=== PATIENT | female | born 1995 ===

== ENCOUNTER 2020-10-20 07:36 | Emergency (ER) | payer SELFPAY ==
[2020-10-20] MEDS ORDERED: HYDROmorphone 1 MG/1 ML INJ IV ONE ×2 (07:42→07:57)
[2020-10-20] MEDS ORDERED: SODIUM CHLORIDE 0.9% 1000 ML 1,000 ML IV ONE ×2 (07:42→08:31)
[2020-10-20] MEDS ORDERED: ONDANSETRON 4 MG/2 ML INJ IV ONE (07:42)
--- NOTE | 2020-10-20 07:45 | Event Note ---
ED Screening Note Date of service: 10/20/20 Time: 07:43 ED Screening Note: 25-year-old female presents to the emergency room for severe abdominal pain times several days and has gotten worse. Patient states that she was seen at [facility] and they kept telling her she had different diagnosis such as urinary tract infection constipation fibroids and back to urinary tract infection. Patient states that she is in so much pain that she is not able to walk. Nursing staff had to assist patient out of a car. Patient is in obvious distress. This initial assessment/diagnostic orders/clinical plan/treatment(s) is/are subject to change based on patients health status, clinical progression and re- assessment by fellow clinical providers in the ED. Further treatment and workup at subsequent clinical providers discretion. Patient/guardian urged not to elope from the ED as their condition may be serious if not clinically assessed and managed. Initial orders include:
--- NOTE | 2020-10-20 08:00 | Emergency Department Report ---
ED Abdominal Pain HPI - General Chief Complaint: Abdominal Pain Stated Complaint: BACK/STOMACH PAIN Time Seen by Provider: 10/20/20 07:41 Source: patient, old records reviewed (No previous medical record for review) Mode of arrival: Wheelchair Limitations: No Limitations - History of Present Illness Initial Comments: 25-year-old female with a past medical history of asthma, seizures, no previous abdominal surgeries presents to the hospital complaining of severe left-sided abdominal pain rating to the back since around 3 AM. Patient complains of pain with urination and pressure radiating down to her vagina. Patient waited for several hours at [facility] but left prior to being seen due to extended wait. Patient was seen at [facility] last week and diagnosed a UTI of fibroids diagnosed after ua and ultrasound. She state test was neg. She denies diagnosis of kidney stones. Since 3 AM she has had 10/10 constant pain with associated nausea vomiting anything she also vomited up the prescribed antibiotics. Positive pain with urination. Patient has not had a bowel movement x1 week. Patient admits to smoking marijuana but denies heroin or narcotic abuse. - Related Data Previous Rx's Medication Instructions Recorded Last Taken Type DOXYCYCLINE Hyclate [Vibramycin 100 mg PO BID #13 tab 10/20/20 Unknown Rx CAP] HYDROcodone/APAP 5-325 [[place] 1 each PO Q6HR PRN #14 tablet 10/20/20 Unknown Rx 5/325] Ibuprofen [Motrin] 600 mg PO Q8H PRN #20 tablet 10/20/20 Unknown Rx Nitrofurantoin [place]/M-Cryst 100 mg PO Q12HR #14 capsule 10/20/20 Unknown Rx [Macrobid CAP] Ondansetron [Zofran Odt] 4 mg PO Q8HR PRN #20 tab.rapdis 10/20/20 Unknown Rx Allergies Allergy/AdvReac Type Severity Reaction Status Date / Time No Known Allergies Allergy Unverified 10/20/20 07:38 ED Review of Systems ROS: Stated complaint: BACK/STOMACH PAIN Other details as noted in HPI Comment: All other systems reviewed and negative ED Past Medical Hx - Past Medical History Previous Medical History?: Yes Hx Seizures: Yes Hx Asthma: Yes - Surgical History Past Surgical History?: No - Social History Smoking Status: Never Smoker Substance Use Type: None - Medications Home Medications: Home Medications Medication Instructions Recorded Confirmed Last Taken Type DOXYCYCLINE Hyclate [Vibramycin 100 mg PO BID #13 tab 10/20/20 Unknown Rx CAP] HYDROcodone/APAP 5-325 [[place] 1 each PO Q6HR PRN #14 tablet 10/20/20 Unknown Rx 5/325] Ibuprofen [Motrin] 600 mg PO Q8H PRN #20 tablet 10/20/20 Unknown Rx Nitrofurantoin [place]/M-Cryst 100 mg PO Q12HR #14 capsule 10/20/20 Unknown Rx [Macrobid CAP] Ondansetron [Zofran Odt] 4 mg PO Q8HR PRN #20 tab.rapdis 10/20/20 Unknown Rx ED Physical Exam - General Limitations: No Limitations - Other Other exam information: General: Positive severe distress, tearful, crying in pain Head: Atraumatic Eyes: normal appearance ENT: Moist mucous membranes Neck: Normal appearance, no midline tenderness Chest: Clear to auscultation bilaterally CV: Tachycardic, regular rhythm, tearful Abdomen: Soft, normal bowel sounds, nontender, tenderness to epigastric and entire left abdomen Back: Normal inspection Extremity: Normal inspection, full range of motion Neuro: Alert O x 3, no facial asymmetry, speech clear, no gross motor sensory deficit Skin: no rash ED Course Vital Signs 10/20/20 10/20/20 10/20/20 07:38 08:09 08:39 Temperature 97.9 F Pulse Rate 159 H Respiratory 24 18 18 Rate Blood Pressure 160/130 Blood Pressure [Right] O2 Sat by Pulse 98 Oximetry 10/20/20 10/20/20 10/20/20 08:47 08:49 09:39 Temperature Pulse Rate 103 H Respiratory 18 18 18 Rate Blood Pressure Blood Pressure 136/89 [Right] O2 Sat by Pulse 100 100 Oximetry 10/20/20 10/20/20 10:09 12:05 Temperature Pulse Rate 69 Respiratory 18 18 Rate Blood Pressure Blood Pressure 105/61 [Right] O2 Sat by Pulse 99 Oximetry ED Medical Decision Making - Lab Data Result diagrams: 10/20/20 07:57 10/20/20 07:57 Lab Results 10/20/20 10/20/20 10/20/20 Range/Units 07:57 07:57 07:57 WBC 13.9 H (4.5-11.0) K/mm3 RBC 4.34 (3.65-5.03) M/mm3 Hgb 13.3 (10.1-14.3) gm/dl Hct 39.9 (30.3-42.9) % MCV 92 (79-97) fl MCH 31 (28-32) pg MCHC 33 (30-34) % RDW 13.0 L (13.2-15.2) % Plt Count 294 (140-440) K/mm3 Lymph % (Auto) 11.6 L (13.4-35.0) % [place] % (Auto) 5.6 (0.0-7.3) % Eos % (Auto) 0.1 (0.0-4.3) % Baso % (Auto) 0.1 (0.0-1.8) % Lymph # (Auto) 1.6 (1.2-5.4) K/mm3 [place] # (Auto) 0.8 (0.0-0.8) K/mm3 Eos # (Auto) 0.0 (0.0-0.4) K/mm3 Baso # (Auto) 0.0 (0.0-0.1) K/mm3 Seg Neutrophils % 82.6 H (40.0-70.0) % Seg Neutrophils # 11.5 H (1.8-7.7) K/mm3 Sodium 141 (137-145) mmol/L Potassium 4.1 (3.6-5.0) mmol/L Chloride 106.8 (98-107) mmol/L Carbon Dioxide 23 (22-30) mmol/L Anion Gap 15 mmol/L BUN 8 (7-17) mg/dL Creatinine 0.8 (0.6-1.2) mg/dL Estimated GFR > 60 ml/min BUN/Creatinine Ratio 10 % Glucose 96 (65-100) mg/dL Lactic Acid (0.7-2.0) mmol/L Calcium 9.5 (8.4-10.2) mg/dL Total Bilirubin 0.40 (0.1-1.2) mg/dL AST 19 (5-40) units/L ALT 10 (7-56) units/L Alkaline Phosphatase 83 (35-129) units/L Total Protein 7.7 (6.3-8.2) g/dL Albumin 4.5 (3.9-5) g/dL Albumin/Globulin Ratio 1.4 % Lipase (13-60) units/L HCG, Quant < 2 (0-4) mIU/mL Urine Color (Yellow) Urine Turbidity (Clear) Urine pH (5.0-7.0) Ur Specific [place]ra (1.003-1.030) Urine Protein (Negative) mg/dL Urine Glucose (UA) (Negative) mg/dL Urine Ketones (Negative) mg/dL Urine Blood (Negative) Urine Nitrite (Negative) Urine Bilirubin (Negative) Urine Urobilinogen (<2.0) mg/dL Ur Leukocyte Esterase (Negative) Urine WBC (Auto) (0.0-6.0) /HPF Urine RBC (Auto) (0.0-6.0) /HPF U Epithel Cells (Auto) (0-13.0) /HPF Urine WBC Clumps /HPF Urine Mucus /HPF Urine Opiates Screen Urine Methadone Screen Ur Barbiturates Screen Ur Phencyclidine Scrn Ur Amphetamines Screen U Benzodiazepines Scrn Urine Cocaine Screen U Marijuana (THC) Screen Drugs of Abuse Note 10/20/20 10/20/20 10/20/20 Range/Units 07:57 07:57 08:32 WBC (4.5-11.0) K/mm3 RBC (3.65-5.03) M/mm3 Hgb (10.1-14.3) gm/dl Hct (30.3-42.9) % MCV (79-97) fl MCH (28-32) pg MCHC (30-34) % RDW (13.2-15.2) % Plt Count (140-440) K/mm3 Lymph % (Auto) (13.4-35.0) % Hooker % (Auto) (0.0-7.3) % Eos % (Auto) (0.0-4.3) % Baso % (Auto) (0.0-1.8) % Lymph # (Auto) (1.2-5.4) K/mm3 [place] # (Auto) (0.0-0.8) K/mm3 Eos # (Auto) (0.0-0.4) K/mm3 Baso # (Auto) (0.0-0.1) K/mm3 Seg Neutrophils % (40.0-70.0) % Seg Neutrophils # (1.8-7.7) K/mm3 Sodium (137-145) mmol/L Potassium (3.6-5.0) mmol/L Chloride (98-107) mmol/L Carbon Dioxide (22-30) mmol/L Anion Gap mmol/L BUN (7-17) mg/dL Creatinine (0.6-1.2) mg/dL Estimated GFR ml/min BUN/Creatinine Ratio % Glucose (65-100) mg/dL Lactic Acid 2.60 H* (0.7-2.0) mmol/L Calcium (8.4-10.2) mg/dL Total Bilirubin (0.1-1.2) mg/dL AST (5-40) units/L ALT (7-56) units/L Alkaline Phosphatase (35-129) units/L Total Protein (6.3-8.2) g/dL Albumin (3.9-5) g/dL Albumin/Globulin Ratio % Lipase 33 (13-60) units/L HCG, Quant (0-4) mIU/mL Urine Color Yellow (Yellow) Urine Turbidity Hazy (Clear) Urine pH 7.0 (5.0-7.0) Ur Specific Citra 1.007 (1.003-1.030) Urine Protein >500 (Negative) mg/dL Urine Glucose (UA) Neg (Negative) mg/dL Urine Ketones Neg (Negative) mg/dL Urine Blood Neg (Negative) Urine Nitrite Neg (Negative) Urine Bilirubin Neg (Negative) Urine Urobilinogen < 2.0 (<2.0) mg/dL Ur Leukocyte Esterase Sm (Negative) Urine WBC (Auto) 37.0 H (0.0-6.0) /HPF Urine RBC (Auto) 2.0 (0.0-6.0) /HPF U Epithel Cells (Auto) 1.0 (0-13.0) /HPF Urine WBC Clumps 2+ /HPF Urine Mucus Few /HPF Urine Opiates Screen Urine Methadone Screen Ur Barbiturates Screen Ur Phencyclidine Scrn Ur Amphetamines Screen U Benzodiazepines Scrn Urine Cocaine Screen U Marijuana (THC) Screen Drugs of Abuse Note 10/20/20 10/20/20 Range/Units 08:32 10:24 WBC (4.5-11.0) K/mm3 RBC (3.65-5.03) M/mm3 Hgb (10.1-14.3) gm/dl Hct (30.3-42.9) % MCV (79-97) fl MCH (28-32) pg MCHC (30-34) % RDW (13.2-15.2) % Plt Count (140-440) K/mm3 Lymph % (Auto) (13.4-35.0) % Hooker % (Auto) (0.0-7.3) % Eos % (Auto) (0.0-4.3) % Baso % (Auto) (0.0-1.8) % Lymph # (Auto) (1.2-5.4) K/mm3 [place] # (Auto) (0.0-0.8) K/mm3 Eos # (Auto) (0.0-0.4) K/mm3 Baso # (Auto) (0.0-0.1) K/mm3 Seg Neutrophils % (40.0-70.0) % Seg Neutrophils # (1.8-7.7) K/mm3 Sodium (137-145) mmol/L Potassium (3.6-5.0) mmol/L Chloride (98-107) mmol/L Carbon Dioxide (22-30) mmol/L Anion Gap mmol/L BUN (7-17) mg/dL Creatinine (0.6-1.2) mg/dL Estimated GFR ml/min BUN/Creatinine Ratio % Glucose (65-100) mg/dL Lactic Acid 0.80 (0.7-2.0) mmol/L Calcium (8.4-10.2) mg/dL Total Bilirubin (0.1-1.2) mg/dL AST (5-40) units/L ALT (7-56) units/L Alkaline Phosphatase (35-129) units/L Total Protein (6.3-8.2) g/dL Albumin (3.9-5) g/dL Albumin/Globulin Ratio % Lipase (13-60) units/L HCG, Quant (0-4) mIU/mL Urine Color (Yellow) Urine Turbidity (Clear) Urine pH (5.0-7.0) Ur Specific Citra (1.003-1.030) Urine Protein (Negative) mg/dL Urine Glucose (UA) (Negative) mg/dL Urine Ketones (Negative) mg/dL Urine Blood (Negative) Urine Nitrite (Negative) Urine Bilirubin (Negative) Urine Urobilinogen (<2.0) mg/dL Ur Leukocyte Esterase (Negative) Urine WBC (Auto) (0.0-6.0) /HPF Urine RBC (Auto) (0.0-6.0) /HPF U Epithel Cells (Auto) (0-13.0) /HPF Urine WBC Clumps /HPF Urine Mucus /HPF Urine Opiates Screen Negative Urine Methadone Screen Negative Ur Barbiturates Screen Negative Ur Phencyclidine Scrn Negative Ur Amphetamines Screen Negative U Benzodiazepines Scrn Negative Urine Cocaine Screen Negative U Marijuana (THC) Screen Positive Drugs of Abuse Note Disclamer - Radiology Data Radiology results: report reviewed CT abdomen pelvis w con INDICATION: Severe abdominal pain/constipation. TECHNIQUE: All CT scans at this location are performed using CT dose reduction for ALARA by means of automated exposure control. COMPARISON: None available. FINDINGS: Lung bases are clear of acute disease. Small stone in the neck of the gallbladder. Liver, spleen, pancreas, kidneys and adrenals are negative. Abdominal aorta is normal in size. No adenopathy. Pelvis Normal appendix. Urinary bladder and distal ureters are negative. Trace free fluid in the inferior pelvis is probably physiologic. There appears to be a 1.7 cm right ovarian cyst. History is noted, but the colon is not distended, and findings do not indicate significant constipation. No skeletal lesions. IMPRESSION: 1. Cholelithiasis. Gallstone is in the neck of the gallbladder, and though CT does not show obvious cholecystitis, ultrasound may be helpful. 2. Probable small right ovarian cyst, with trace free fluid in the pelvis, probably physiologic. - Medical Decision Making Patient hysterical during most of her ED evaluation and continued to complain of pain despite 1 mg of Dilaudid and Zofran. Patient did calm down with addition of Benadryl, Toradol, and subsequently Ativan 0.5. She did receive 2 L of normal saline during ED stay. Urine suggest infection. CT shows cholelithiasis without cholecystitis, small right ovarian cyst, and likely physiologic pelvic fluid. Patient does not endorse right upper quadrant pain and states pain is all left-sided and suprapubic in nature radiating to her vagina. Patient also has normal LFTs. Patient does have CMT and vaginal tenderness with pelvic exam and therefore also treated for PID until gonorrhea chlamydia test result. She received IV Rocephin for UTI. Patient without vomiting during ED stay. Mild elevated lactic acid improved with IV hydration. Patient reports that she was diagnosed with fibroids at [facility] which had not been identified on CT exam here. Despite patient's complaint of constipation there is no significant retained stool on CT examination. Patient be discharged home on medications for pain, nausea, and antibiotics for PID and UTI. Initial abnormal vital signs likely secondary to distress secondary to pain. Prior to discharge vital signs have normalized and patient is much more comfortable Critical Care Time: No Critical care attestation.: If time is entered above; I have spent that time in minutes in the direct care of this critically ill patient, excluding procedure time. ED Disposition Clinical Impression: UTI (urinary tract infection), Pelvic pain, Cholelithiasis Disposition: TO HOME OR SELFCARE Is pt being admited?: No Condition: Stable Instructions: Cholelithiasis, Pelvic Pain, Female, Urinary Tract Infection, Adult, Abdominal Pain (ED) Additional Instructions: Take the medication as prescribed. Follow-up with your doctor or doctor/clinic provided. Return if symptoms worsen as indicated by your discharge in structions. Your gonorrhea and Chlamydia tests have been sent and take 2-3 days to result. You may obtain your results by going to medical records with your photo ID or your follow-up physician may request the results be sent to his or her office with your written permission. You did received treatment for gonorrhea and chlamydia since results are delayed. Prescriptions: Nitrofurantoin [place]er/M-Cryst [Macrobid CAP] 100 mg PO Q12HR #14 capsule Ibuprofen [Motrin] 600 mg PO Q8H PRN #20 tablet PRN Reason: Pain HYDROcodone/APAP 5-325 [[place] 5/325] 1 each PO Q6HR PRN #14 tablet PRN Reason: Pain DOXYCYCLINE Hyclate [Vibramycin CAP] 100 mg PO BID #13 tab Ondansetron [Zofran Odt] 4 mg PO Q8HR PRN #20 tab.rapdis PRN Reason: Nausea And Vomiting Referrals: PRIMARY CARE, [Primary Care Provider] - 3-5 Days [facility] [Provider Group] - 3-5 Days [facility] [Provider Group] - 3-5 Days JEAN PAUL PALACIOS MD [Staff Physician] - 3-5 Days Forms: [facility]I Treatment and Prevention Time of Disposition: 12:11
[2020-10-20 08:21] LABS: Basophils % (Auto) 0.1 % (0.0-1.8); Eosinophils % (Auto) 0.1 % (0.0-4.3); Hematocrit 39.9 % (30.3-42.9); Hemoglobin 13.3 gm/dl (10.1-14.3); Lymphocytes # (Auto) 1.6 K/mm3 (1.2-5.4); Lymphocytes % (Auto) 11.6 % (13.4-35.0); Mean Corpuscular HGB Conc 33 % (30-34); Mean Corpuscular Volume 92 fl (79-97); Monocytes # (Auto) 0.8 K/mm3 (0.0-0.8); Monocytes % (Auto) 5.6 % (0.0-7.3); Platelet Count 294 K/mm3 (140-440); Red Blood Count 4.34 M/mm3 (3.65-5.03)
[2020-10-20 08:48] LABS: Alanine Aminotransferase 10 units/L (7-56); Albumin 4.5 g/dL (3.9-5); BUN/Creatinine Ratio 10; Blood Urea Nitrogen 8 mg/dL (7-17); Calcium 9.5 mg/dL (8.4-10.2); Hemolysis Index 19
[2020-10-20 09:04] LABS: Bilirubin,Urine NEG (Negative); Blood,Urine NEG (Negative); Color,Urine Yellow (Yellow); Mucus,Urine FEW /HPF; Urobilinogen,Urine < 2.0 mg/dL (<2.0)
[2020-10-20 09:06] LABS: Protein,Urine >500 mg/dL (Negative)
[2020-10-20 09:08] LABS: Amphetamine Screen,Urine Negative; Benzodiazepines Screen,Urine Negative; Cocaine Screen,Urine Negative; Methadone Screen,Urine Negative; Opiate Screen,Urine Negative
[2020-10-20] MEDS ORDERED: LORazepam 2 MG/ML VIAL IV ONE (09:11)
[2020-10-20] MEDS ORDERED: diphenhydrAMINE 50 MG/ML VIAL IV ONE (09:11)
[2020-10-20] MEDS ORDERED: KETOROLAC 30 MG/1 ML INJ IV ONE (09:12)
[2020-10-20] MEDS ORDERED: cefTRIAXone/NS 1 GM/50 ML 1 GM/50 ML BAG IV ONE (09:12)
[2020-10-20 09:22] LABS: Cannabinoid Screen,Urine Positive
--- NOTE | 2020-10-20 09:59 | Cat Scan Report ---
CT abdomen pelvis w con INDICATION: Severe abdominal pain/constipation. TECHNIQUE: All CT scans at this location are performed using CT dose reduction for ALARA by means of automated e xposure control. COMPARISON: None available. FINDINGS: Lung bases are clear of acute disease. Small stone in the neck of the gallbladder. Liver, spleen, ramos creas, kidneys and adrenals are negative. Abdominal aorta is normal in size. No adenopathy. Pelvis Normal appendix. Urinary bladder and distal ureters are negative. Trace free fluid in the inferior pe lvis is probably physiologic. There appears to be a 1.7 cm right ovarian cyst. History is noted, but the colon is not distended, and findings do not indicate significant constipati on. No skeletal lesions. IMPRESSION: 1. Cholelithiasis. Gallstone is in the neck of the gallbladder, and though CT does not show obvious c holecystitis, ultrasound may be helpful. 2. Probable small right ovarian cyst, with trace free fluid in the pelvis, probably physiologic. Signer Name: Clinton Fry MD Signed: 10/20/2020 9:54 AM Workstation Name: [id number]
[2020-10-20] MEDS ORDERED: DOXYCYCLINE 100 MG CAP PO ONE (11:56)
[2020-10-20 16:01] VITALS: BP 105/69
== END 2020-10-20 12:30 | disposition home or self-care (01) ==
LOC: ED 07:36
DX: N39.0 Urinary tract infection, site not specified (principal); K80.20 Calculus of gallbladder without cholecystitis without obstruction; R10.2 Pelvic and perineal pain; J45.909 Unspecified asthma, uncomplicated; Z79.899 Other long term (current) drug therapy; Z86.69 Personal history of other diseases of the nervous system and sense organs
CPT/HCPCS: 36415; 74177; 80053; 80307; 81001; 82140; 83690; 84702; 85025; 87086; 87210; 87591; 96361; 96365; 96366; 96375; 99284; J0696; J1170; J1200; J1885; J2060; J2405; J7030; Q9967

== ENCOUNTER 2020-11-07 11:41 | Emergency (ER) | payer SELFPAY ==
[2020-11-07] MEDS ORDERED: KETOROLAC 60 MG/2 ML INJ ONE (11:46)
[2020-11-07] MEDS ORDERED: KETOROLAC 30 MG/1 ML INJ IM ONE (11:48)
[2020-11-07] MEDS ORDERED: ONDANSETRON 4 MG ODT TAB PO ONE ×2 (11:48→12:04)
[2020-11-07] MEDS ORDERED: ONDANSETRON 4 MG/2 ML INJ IM ONE (11:50)
--- NOTE | 2020-11-07 11:51 | Event Note ---
ED Screening Note Date of service: 11/07/20 Time: 11:49 ED Screening Note: 25-year-old female known to me from October 20, 2020 comes in for back pain and stomach pain. Patient was discharged from [place] last night for the same complaint. Review of patient's charts noticed that she tested positive for gonorrhea and chlamydia. Patient states that she was treated with a shot of medicine. It was also noted the patient had positive urine UDS marijuana. Patient states she smokes. This initial assessment/diagnostic orders/clinical plan/treatment(s) is/are subject to change based on patients health status, clinical progression and re- assessment by fellow clinical providers in the ED. Further treatment and workup at subsequent clinical providers discretion. Patient/guardian urged not to elope from the ED as their condition may be serious if not clinically assessed and managed. Initial orders include:
[2020-11-07] MEDS ORDERED: fentaNYL 100 MCG/2 ML INJ IV ONE (12:00)
[2020-11-07 12:19] VITALS: BP 119/82
[2020-11-07] MEDS ORDERED: fentaNYL 250 MCG/5 ML INJ IV ONE (12:23)
[2020-11-07] MEDS ORDERED: ONDANSETRON 4 MG/2 ML INJ IV ONE (12:23)
[2020-11-07] MEDS ORDERED: LORazepam 2 MG/ML VIAL ONE (12:25)
[2020-11-07] MEDS ORDERED: fentaNYL 100 MCG/2 ML INJ ONE (12:25)
[2020-11-07] MEDS ORDERED: LORazepam 2 MG/ML VIAL IV ONE (12:31)
--- NOTE | 2020-11-07 12:32 | Emergency Department Report ---
ED Abdominal Pain HPI - General Chief Complaint: Abdominal Pain Stated Complaint: BACK/STOMACH PAIN Time Seen by Provider: 11/07/20 12:17 Source: patient Mode of arrival: Ambulatory Limitations: No Limitations - History of Present Illness Initial Comments: Patient is 25 years old female with no significant past medical history. Patient presented to the ER complaining of severe abdominal pain and back spasms started all of a sudden this morning. Patient stated that she went to [facility] and diagnosed with chlamydia and discharged home but her pain is not relieved. Patient stated that she never had any pain like this before. Patient denied any fever or chills. Patient stated that she is nauseated but no vomiting. MD Complaint: abdominal pain -: This morning Location: diffuse Migration to: no migration Severity scale (0 -10): 10 - Related Data Previous Rx's Medication Instructions Recorded Last Taken Type DOXYCYCLINE Hyclate [Vibramycin 100 mg PO BID #13 tab 10/20/20 Unknown Rx CAP] HYDROcodone/APAP 5-325 [[place] 1 each PO Q6HR PRN #14 tablet 10/20/20 Unknown Rx 5/325] Ibuprofen [Motrin] 600 mg PO Q8H PRN #20 tablet 10/20/20 Unknown Rx Nitrofurantoin [place]/M-Cryst 100 mg PO Q12HR #14 capsule 10/20/20 Unknown Rx [Macrobid CAP] Ondansetron [Zofran Odt] 4 mg PO Q8HR PRN #20 tab.rapdis 10/20/20 Unknown Rx Allergies Allergy/AdvReac Type Severity Reaction Status Date / Time lithium Allergy Angioedema Verified 11/07/20 12:35 risperidone [From Risperdal] Allergy Angioedema Verified 11/07/20 12:35 fentanyl AdvReac Itching Verified 11/07/20 12:33 ED Review of Systems ROS: Stated complaint: BACK/STOMACH PAIN Other details as noted in HPI Comment: All other systems reviewed and negative Constitutional: denies: chills, fever Respiratory: denies: cough, shortness of breath, SOB with exertion Cardiovascular: denies: chest pain, palpitations Gastrointestinal: abdominal pain, nausea. denies: vomiting, diarrhea, constipation, hematemesis Musculoskeletal: back pain Neurological: denies: headache, weakness, numbness, paresthesias ED Past Medical Hx - Past Medical History Previous Medical History?: Yes Hx Seizures: Yes Hx Asthma: Yes - Surgical History Past Surgical History?: No - Social History Smoking Status: Never Smoker Substance Use Type: Marijuana - Medications Home Medications: Home Medications Medication Instructions Recorded Confirmed Last Taken Type DOXYCYCLINE Hyclate [Vibramycin 100 mg PO BID #13 tab 10/20/20 Unknown Rx CAP] HYDROcodone/APAP 5-325 [[place] 1 each PO Q6HR PRN #14 tablet 10/20/20 Unknown Rx 5/325] Ibuprofen [Motrin] 600 mg PO Q8H PRN #20 tablet 10/20/20 Unknown Rx Nitrofurantoin [place]/M-Cryst 100 mg PO Q12HR #14 capsule 10/20/20 Unknown Rx [Macrobid CAP] Ondansetron [Zofran Odt] 4 mg PO Q8HR PRN #20 tab.rapdis 10/20/20 Unknown Rx ED Physical Exam - General Limitations: No Limitations General appearance: alert, in distress (PAIN) - Head Head exam: Present: atraumatic, normocephalic, normal inspection - Eye Eye exam: Present: normal appearance, PERRL - ENT ENT exam: Present: mucous membranes dry - Neck Neck exam: Present: normal inspection, full ROM. Absent: tenderness, meningismus - Respiratory Respiratory exam: Present: normal lung sounds bilaterally - Cardiovascular Cardiovascular Exam: Present: tachycardia - GI/Abdominal GI/Abdominal exam: Present: soft, normal bowel sounds. Absent: distended, tenderness, guarding, rebound, rigid, organomegaly, mass, bruit, pulsatile mass, hernia - Extremities Exam Extremities exam: Present: normal inspection, full ROM, normal capillary refill. Absent: calf tenderness - Back Exam Back exam: Present: normal inspection, full ROM. Absent: tenderness, CVA tenderness (L) - Neurological Exam Neurological exam: Present: alert, oriented X3, CN II-XII intact, normal gait, reflexes normal - Psychiatric Psychiatric exam: Present: normal mood - Skin Skin exam: Present: warm, intact, normal color ED Course Vital Signs 11/07/20 11/07/20 11/07/20 12:01 12:19 12:34 Temperature 98.3 F Pulse Rate 120 H 118 H Respiratory 18 20 24 Rate Blood Pressure 119/82 [Left] O2 Sat by Pulse 100 100 Oximetry 11/07/20 14:19 Temperature Pulse Rate Respiratory 18 Rate Blood Pressure [Left] O2 Sat by Pulse Oximetry ED Medical Decision Making - Lab Data Result diagrams: 11/07/20 12:03 11/07/20 12:03 - Radiology Data Radiology results: report reviewed - Medical Decision Making Patient is 25 years old female with no significant past medical history. Patient presented to the ER complaining of severe abdominal pain and back spasms started all of a sudden this morning. Patient stated that she went to [facility] ER and diagnosed with chlamydia and discharged home but her pain is not relieved. Patient stated that she never had any pain like this before. Patient denied any fever or chills. Patient stated that she is nauseated but no vomiting. Patient had a similar presentation last months and she was seen by one of our nurse practitioner who is working today. Labs reviewed and is unremarkable except for UDS which is positive for marijuana. Patient received multiple medication for nausea and vomiting and pain. CT abdomen and pelvis reviewed and showed no acute finding. Patient also admitted that her symptoms usually started after she use marijuana. I suspect cannabinoid hyperemesis syndrome. I counseled the patient about drug abuse. Patient given prescription for Zofran and advised to follow-up with her primary care physician in the next 2 to 3 days and to return to the ER if she develop any new symptoms. Critical care attestation.: If time is entered above; I have spent that time in minutes in the direct care of this critically ill patient, excluding procedure time. ED Disposition Clinical Impression: Acute abdominal pain, Acute nausea with nonbilious vomiting, Cannabinoid hyperemesis syndrome Disposition: -01 TO HOME OR SELFCARE Is pt being admited?: No Condition: Stable Instructions: Abdominal Pain (ED), Nausea, Adult, Cannabis Use Disorder Referrals: PRIMARY CARE, [Primary Care Provider] - 3-5 Days
[2020-11-07] MEDS ORDERED: diphenhydrAMINE 50 MG/ML VIAL IV ONE (12:35)
[2020-11-07 13:28] LABS: Albumin 5.1 g/dL (3.9-5); Calcium 10.3 mg/dL (8.4-10.2)
[2020-11-07 13:35] LABS: Hematocrit 38.5 % (30.3-42.9); Hemoglobin 12.8 gm/dl (10.1-14.3); Mean Corpuscular HGB Conc 33 % (30-34); Mean Corpuscular Volume 94 fl (79-97); Red Blood Count 4.11 M/mm3 (3.65-5.03); Red Cell Distribution Width 13.8 % (13.2-15.2)
[2020-11-07 13:38] LABS: Platelet Count 21 K/mm3 (140-440)
[2020-11-07] MEDS ORDERED: KETOROLAC 30 MG/1 ML INJ IV ONE (14:08)
--- NOTE | 2020-11-07 14:15 | Cat Scan Report ---
CT abdomen pelvis wo con INDICATION: abd pain and back pain. TECHNIQUE: All CT scans at this location are performed using the following dose modulation technique: Automated exposure control. CONTRAST: None. COMPARISON: 10/20/2020. CT ABDOMEN: The parenchymal organs are unremarkable in appearance other than a 1 mm nonobstructing ri ght renal stone. Negative for abdominal mass, fluid or inflammation. The bowel is not dilated or thic kened. The gallbladder contains a calcified gallstone but appears noninflamed. CT PELVIS: Negative for pelvic mass, fluid or inflammation. What is thought to be the appendix is unr emarkable. IMPRESSION: 1. Calcified gallstone. 2. Nonobstructing right renal stone. 3. Negative for obstruction or localized inflammation. Signer Name: Tyron Gomez MD Signed: 11/07/2020 2:10 PM Workstation Name: [id number]
[2020-11-07] MEDS ORDERED: HALOPERIDOL LACTATE 5 MG/1 ML INJ IM ONE (14:52)
[2020-11-07 15:43] LABS: Bilirubin,Urine NEG (Negative); Blood,Urine NEG (Negative); Color,Urine Yellow (Yellow); Mucus,Urine 2+ /HPF; Urobilinogen,Urine < 2.0 mg/dL (<2.0)
[2020-11-07 15:44] LABS: Protein,Urine >500 mg/dL (Negative)
[2020-11-07 16:01] LABS: Amphetamine Screen,Urine Negative; Benzodiazepines Screen,Urine Negative; Cocaine Screen,Urine Negative; Methadone Screen,Urine Negative; Opiate Screen,Urine Negative
[2020-11-07 16:12] LABS: Cannabinoid Screen,Urine Positive
== END 2020-11-07 17:16 | disposition home or self-care (01) ==
LOC: ED 11:41
DX: R10.84 Generalized abdominal pain (principal); R11.2 Nausea with vomiting, unspecified; I10 Essential (primary) hypertension; J45.909 Unspecified asthma, uncomplicated; F12.10 Cannabis abuse, uncomplicated; Z79.899 Other long term (current) drug therapy; Z88.8 Allergy status to other drugs, medicaments and biological substances
CPT/HCPCS: 36415; 74176; 80053; 80307; 81001; 83690; 84702; 85025; 96372; 96374; 96375; 99284; J1200; J1630; J1885; J2060; J2405; J3010; Q0162